=== PATIENT | female | born 1975 | race Caucasian/White ===

== ENCOUNTER 2020-04-10 14:48 | Emergency (ER) | payer OTHER ==
--- NOTE | 2020-04-10 14:57 | PDOC ---
Rapid Medical Evaluation Time Seen by Provider: 04/10/20 14:55 Medical Evaluation: Allergies Allergy/AdvReac Type Severity Reaction Status Date / Time No Known Allergies Allergy Verified 04/10/20 14:54 04/10/20 14:55 44 year old female no pmhx tetanus UTD presenting with laceration on left dorsum of foot after fire extinguisher fell on foot. PE: 2cm lac to dorsum of foot ttp Plan XR Pt to precede to ED for further evaluation and care
[2020-04-10 14:58] VITALS: BP 141/93; PULSE 97; TEMP 97.9; BMI 24.3
[2020-04-10] MEDS ORDERED: DIPHTH,PERTUSS(ACELL),TET 0.5 ML DISP.SYRIN IM ONE ×2 (16:09→16:11)
--- NOTE | 2020-04-10 16:52 | PDOC ---
History of Present Illness - General Chief Complaint: Injury Stated Complaint: INJURY Time Seen by Provider: 04/10/20 14:55 History Source: Patient Exam Limitations: No Limitations - History of Present Illness Initial Comments: 04/10/20 16:48 44-year-old female denies past medical history presents complaining of left foot pain after a fire extinguisher accidentally fell on top of it earlier today. Unknown tetanus status, denies any other injury. ROS: as above PE: GENERAL: well-appearing, NAD HEAD: NCAT EYES: Pupils equal, round and reactive to light, sclera anicteric, conjunctiva clear ENT: pharynx: no erythema, no exudate, uvula midline NECK: supple CHEST: nontender RESP: clear, no w/r/r CARDIO: rrr, no m/g/r ABD: +BS, soft, nontender, non distended BACK: no midline spinal ttp, no CVAT EXTREMITIES: Normal range of motion, no edema NEUROLOGICAL: Normal speech, ambulating with slight SKIN: Minimal swelling with approximately 1.5 cm laceration to dorsum of left fo ot, no active bleeding, no ecchymoses noted Is this a multiple visit Asthma Patient?: No Past History - Medical History Allergies/Adverse Reactions: Allergies Allergy/AdvReac Type Severity Reaction Status Date / Time No Known Allergies Allergy Verified 04/10/20 14:54 Home Medications: Ambulatory Orders NK [No Known Home Medication] 04/10/20 COPD: No - Immunization History Immunization Up to Date: Yes - Psycho-Social/Smoking History Smoking History: Never smoked - Substance Abuse Hx (Audit-C & DAST Scrn) How often the patient has a drink containing alcohol: Monthly or less Score: In Men: 4 or > Positive; In Women: 3 or > Positive: 1 Screen Result (Pos requires Nsg. Audit-10AR): Negative In the last yr the pt used illegal drug/Rx for NonMed reason: No Score: Yes response is considered Positive: 0 Screen Result (Positive result requires Nsg. DAST-10): Negative *Physical Exam - Vital Signs Last Vital Signs Temp Pulse Resp BP Pulse Ox 97.9 F 97 H 18 141/93 99 04/10/20 14:56 04/10/20 14:56 04/10/20 14:56 04/10/20 14:56 04/10/20 14:56 Procedures - Laceration/Wound Repair Left Dorsal Foot Wound Length: to 2.5 cm Wound Explored: clean Wound's Depth, Shape: superficial Irrigated w/ Saline: Yes Betadine Prep: Yes Anesthesia: 1% Lidocaine Wound Repaired With: Sutures Suture Size/Type: 4:0 Number of Sutures: 3 Sterile Dressing Applied: Yes ED Treatment Course - Medications Given in the ED: ED Medications Discontinued Medications Generic Name Dose Route Start Last Admin Trade Name Donna PRN Reason Stop Dose Admin Diphtheria/Tetanus/Acell Pertussis 0.5 ml 04/10/20 16:09 04/10/20 16:10 Boostrix - IM 04/10/20 16:10 0.5 ml .ONCE ONE Administration Medical Decision Making - Medical Decision Making 04/10/20 16:49 44-year-old female denies past medical history presents complaining of left foot pain after a fire extinguisher accidentally fell on top of it earlier today. Unknown tetanus status, denies any other injury. Tetanus received today Laceration repair Patient understands return precautions Return to ED in 10 days for suture removal 04/10/20 16:50 Discharge - Discharge Information Problems reviewed: Yes Clinical Impression/Diagnosis: Laceration Condition: Stable Disposition: HOME - Admission No - Follow up/Referral Referrals: Sharif Merritt MD [Primary Care Provider] - - Patient Discharge Instructions Additional Instructions: Keep area clean and dry You may remove the dressing in 24 hours Apply bacitracin twice a day Return to ED in 10 days for suture removal You may take ibuprofen 600 mg every 6 hours as needed for pain If you develop fever, chills, swelling, pain, or any concerning symptoms return to ED - Post Discharge Activity
== END 2020-04-10 16:57 | disposition home or self-care (01) ==
LOC: JERFT 14:48
PROC: 3E0234Z Introduction of Serum, Toxoid and Vaccine into Muscle, Percutaneous Approach (ICD-10-PCS; principal; 2020-04-10)
PROC: 0HQMXZZ Repair Right Foot Skin, External Approach (ICD-10-PCS; 2020-04-10)
DX: S91.312A Laceration without foreign body, left foot, initial encounter (principal)
CPT/HCPCS: 73630-TC-LT; 90715; 99284-25

== ENCOUNTER 2020-04-17 14:52 | Emergency (ER) | payer OTHER ==
[2020-04-17 15:19] VITALS: BP 135/90; PULSE 77; TEMP 98.4; BMI 25.3
--- NOTE | 2020-04-17 15:45 | PDOC ---
History of Present Illness - General Chief Complaint: Suture/Staple Removal(Here) Stated Complaint: REMOVE STITCHES Time Seen by Provider: 04/17/20 15:18 History Source: Patient Exam Limitations: No Limitations - History of Present Illness Initial Comments: 04/17/20 15:48 Patient is a 44-year-old female who presents to the ED for suture removal to the dorsum of her left foot. She states she had the sutures placed 1 week ago. She denies any complaints. She states the wound is now itchy. She has been putting triple antibiotic on the wound since she sustained the wound a week ago. She denies any sutures coming out on their own. She denies any purulence or drainage. Past History - Medical History Allergies/Adverse Reactions: Allergies Allergy/AdvReac Type Severity Reaction Status Date / Time No Known Allergies Allergy Verified 04/10/20 14:54 Home Medications: Ambulatory Orders NK [No Known Home Medication] 04/10/20 COPD: No - Reproductive History Is Patient Now?: No - Immunization History Immunization Up to Date: Yes - Psycho-Social/Smoking History Smoking History: Never smoked Information on smoking cessation initiated: No - Substance Abuse Hx (Audit-C & DAST Scrn) How often the patient has a drink containing alcohol: Never Score: In Men: 4 or > Positive; In Women: 3 or > Positive: 0 Screen Result (Pos requires Nsg. Audit-10AR): Negative In the last yr the pt used illegal drug/Rx for NonMed reason: No Score: Yes response is considered Positive: 0 Screen Result (Positive result requires Nsg. DAST-10): Negative Review of Systems - Review of Systems Comments:: 04/17/20 15:48 - Review of Systems Able to Perform ROS?: Yes Constitutional: No: Fever, Chills, Loss of Appetite, Night Sweats, Weakness HEENTM: No: Eye Pain, Vision changes, Ear Pain, Throat Pain, Throat Swelling, Mouth Pain, Difficulty Swallowing Respiratory: No: Cough, Shortness of Breath, Wheezing, Sputum Production Cardiac (ROS): No: Chest Pain, Chest Tightness, Palpitations, Irregular Heart Beat, Edema ABD/GI: No: Nausea, Vomiting, Abdominal Pain, Diarrhea : No Dysuria, No Hematuria, No Frequency, No Urgency Musculoskeletal: No: Muscle Pain, Back Pain, Joint Pain, Muscle Weakness, Neck Pain Integumentary: No: Lesions, Rash; + suture removal R foot Neurological: No: Headache, Numbness, Tingling, Weakness, Speech Difficulties *Physical Exam - Vital Signs Last Vital Signs Temp Pulse Resp BP Pulse Ox 98.4 F 77 17 135/90 100 04/17/20 15:12 04/17/20 15:12 04/17/20 15:12 04/17/20 15:12 04/17/20 15:12 - Physical Exam 04/17/20 15:49 - Physical Exam General Appearance: Nourished, Appropriately Dressed, No Distress HEENT: EOMI, Normal Voice, Hearing Grossly Normal Neck: Supple, No Lymphadenopathy (R), No Lymphadenopathy (L), No Rigidity, No Decreased range of motion Respiratory/Chest: Lungs Clear, Normal Breath Sounds. No Respiratory Distress, No Accessory Muscle Use Cardiovascular: Regular Rhythm, Regular Rate, S1, S2 Musculoskeletal: Normal Inspection. No Decreased Range of Motion Extremity: Normal Capillary Refill, Normal Inspection Integumentary: Normal Color, Dry. No Rash; 2 cm laceration to the dorsum of the left foot that is well-healing with [address]. Slight maceration to the wound secondary to increased moisture from the triple antibiotic ointment. 3 sutures removed using an 11 blade scalpel and forceps without complication. The wound has not healed completely secondary to the moisture so Steri-Strips were placed. 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 Plan: -3 sutures removed using an 11 blade scalpel and forceps without complication -Steri-Strips placed -Patient given wound care instructions -Patient to follow-up with her primary doctor within 1 to 2 days for repeat evaluation. She understands and agrees to treatment plan and she is stable for discharge. Discharge - Discharge Information Problems reviewed: Yes Clinical Impression/Diagnosis: Visit for suture removal Condition: Stable Disposition: HOME - Follow up/Referral Referrals: Sharif Merritt MD [Primary Care Provider] - 3 days - Patient Discharge Instructions Patient Printed Discharge Instructions: DI for Suture Removal Additional Instructions: You had 3 sutures removed and Steri-Strips placed. Do not remove the Steri- Strips, they will fall off on their own. You can wash normally with warm water and soap. Do not apply any ointment to the wound as this will keep the wound to wet and not allow it to heal. Follow-up with your primary doctor in 1 to 2 days for a wound check. Le quitaron 3 suturas y le colocaron Steri-Strips. No retire las Steri-Strips, se caern solas. Se puede yasmin normalmente con agua tibia y jabn. No aplique ningn ungento sobre la herida ya que esto mantendr la herida hmeda y no permitir que sane. Suri un seguimiento con alvarenga mdico de atencin primaria en 1 a 2 hewitt para un control de heridas. - Post Discharge Activity Work/Back to School Note: Back to Work
== END 2020-04-17 16:07 | disposition home or self-care (01) ==
LOC: JERFT 14:52 → JER 14:52 → JERFT 16:07
DX: Z48.02 Encounter for removal of sutures (principal)
CPT/HCPCS: 99281-25

== ENCOUNTER 2022-01-26 04:20 | Day surgery (SDC) | payer OTHER ==
[2022-01-22 09:04] VITALS: BMI 25.0
[2022-01-26] MEDS ORDERED: LIDOCAINE HCL 1%, 10 MG/ML (20ML VIAL) ONE (07:25)
[2022-01-26] MEDS ORDERED: BUPIVACAINE HCL/PF 0.5% (5MG/ML) 10 ML VIAL ONE (07:25)
[2022-01-26] MEDS ORDERED: MIDAZOLAM HCL 2 MG/2 ML SINGLE DOSE VIAL ONE ×2 (08:33→09:07)
[2022-01-26] MEDS ORDERED: FENTANYL CITRATE/PF 50 MCG/ML VIAL ONE (09:01)
[2022-01-26] MEDS ORDERED: PROPOFOL 20 ML ONE ×2 (09:03→09:59)
[2022-01-26] MEDS ORDERED: BUPIVACAINE HCL/PF 0.5% (5MG/ML) 10 ML VIAL NR ONE ×2 (09:12)
[2022-01-26] MEDS ORDERED: LIDOCAINE HCL 1%, 10 MG/ML (20ML VIAL) NR ONE ×2 (09:13)
[2022-01-26] MEDS ORDERED: ceFAZolin SODIUM 1 GM VIAL IVPB ONE (09:15)
[2022-01-26] MEDS ORDERED: BACITRACIN 15 GM TUBE TOPICAL OINTMENT TP ONE (09:28)
[2022-01-26] MEDS ORDERED: ceFAZolin SODIUM 1 GM VIAL ONE (09:30)
[2022-01-26 12:14] VITALS: BP 136/85; PULSE 69; TEMP 97.3
== END 2022-01-26 11:20 | disposition home or self-care (01) ==
LOC: JASU-SURG 04:20
PROVIDERS: ATTEND Surgery
PROC: 0HBX0ZX Excision of Left Nipple, Open Approach, Diagnostic (ICD-10-PCS; principal; 2022-01-26 09:00)
DX: D24.2 Benign neoplasm of left breast (principal)
CPT/HCPCS: 81025; 88305-TC

== ENCOUNTER 2023-07-05 04:51 | Day surgery (SDC) | payer OTHER ==
[2023-06-30 16:50] VITALS: BMI 24.2
[2023-07-05] MEDS ORDERED: ONDANSETRON 4 MG/2 ML VIAL ONE ×2 (09:57)
[2023-07-05] MEDS ORDERED: KETOROLAC TROMETHAMINE 30 MG/1 ML VIAL ONE (09:57)
[2023-07-05] MEDS ORDERED: DEXAMETHASONE SOD PHOSPHATE 4 MG/1 ML VIAL ONE (09:57)
[2023-07-05] MEDS ORDERED: PROPOFOL 60 ML ONE (09:57)
[2023-07-05] MEDS ORDERED: MIDAZOLAM HCL 2 MG/2 ML SINGLE DOSE VIAL ONE (09:58)
[2023-07-05] MEDS ORDERED: FENTANYL CITRATE/PF 50 MCG/ML VIAL ONE ×5 (09:58→13:11)
[2023-07-05] MEDS ORDERED: ceFAZolin SODIUM 1 GM VIAL IVPB ONE (10:45)
[2023-07-05] MEDS ORDERED: BUPIVACAINE HCL/PF 0.5% (5MG/ML) 10 ML VIAL ONE (10:48)
[2023-07-05] MEDS ORDERED: TRIAMCINOLONE ACET 40MG/1ML VIAL ONE (10:50)
[2023-07-05] MEDS ORDERED: BUPIVACAINE HCL/PF 0.5% (5MG/ML) 10 ML VIAL NR ONE ×2 (10:53→11:00)
[2023-07-05] MEDS ORDERED: TRIAMCINOLONE ACET 40MG/1ML VIAL IM ONE (10:54)
[2023-07-05] MEDS ORDERED: TRIAMCINOLONE ACET 40MG/1ML VIAL NR ONE (11:00)
[2023-07-05] MEDS ORDERED: oxyCODONE HCL 5 MG TABLET PO PRN (12:29)
[2023-07-05] MEDS ORDERED: ONDANSETRON 4 MG/2 ML VIAL IVPUSH PRN (12:29)
[2023-07-05] MEDS ORDERED: PROMETHAZINE HCL 25 MG/1 ML VIAL IVPB PRN (12:29)
[2023-07-05] MEDS ORDERED: LACTATED RINGERS SOLUTION 1,000 ML IV SCH (12:30)
[2023-07-05 15:14] VITALS: BP 123/87; PULSE 82; RESP 20; TEMP 97
== END 2023-07-05 15:35 | disposition home or self-care (01) ==
LOC: JASU-SURG 04:51
PROVIDERS: ATTEND Surgery
PROC: 0JB70ZZ Excision of Back Subcutaneous Tissue and Fascia, Open Approach (ICD-10-PCS; principal; 2023-07-05 10:00)
DX: D17.1 Benign lipomatous neoplasm of skin and subcutaneous tissue of trunk (principal)
CPT/HCPCS: 81025; 88304-TC; 94760

== ENCOUNTER 2023-07-26 09:16 | Emergency (ER) | payer OTHER ==
[2023-07-26 09:21] VITALS: BP 158/86; PULSE 96; RESP 20; TEMP 97.6; BMI 24.5
== END 2023-07-26 10:57 | disposition home or self-care (01) ==
LOC: JERFT 09:16
DX: L76.82 Other postprocedural complications of skin and subcutaneous tissue (principal); L29.9 Pruritus, unspecified; L53.9 Erythematous condition, unspecified; L23.9 Allergic contact dermatitis, unspecified cause; R21 Rash and other nonspecific skin eruption
CPT/HCPCS: 99283-25

== ENCOUNTER 2023-09-15 04:33 | Day surgery (SDC) | payer OTHER ==
[2023-09-09 13:30] VITALS: BMI 24.2
[2023-09-15 09:55] VITALS: TEMP 98
[2023-09-15 10:22] VITALS: BP 135/81
[2023-09-15 10:24] VITALS: PULSE 64; RESP 19
== END 2023-09-15 10:43 | disposition home or self-care (01) ==
LOC: JASU-ENDO 04:33
PROVIDERS: ATTEND Internal Medicine Gastroenterology
PROC: 0DBN8ZX Excision of Sigmoid Colon, Via Natural or Artificial Opening Endoscopic, Diagnostic (ICD-10-PCS; 2023-09-15)
PROC: 0DBP8ZX Excision of Rectum, Via Natural or Artificial Opening Endoscopic, Diagnostic (ICD-10-PCS; principal; 2023-09-15 09:30)
DX: Z12.11 Encounter for screening for malignant neoplasm of colon (principal); D12.7 Benign neoplasm of rectosigmoid junction; K62.1 Rectal polyp; K64.8 Other hemorrhoids
CPT/HCPCS: 88305-TC